=== PATIENT | female | born 1980 | race Caucasian/White ===

== ENCOUNTER → 2020-07-28 | Outpatient (REF) | payer OTHER ==
[~2020-07-28] MED LIST: IBUP200C25 PO; PERCOCET PO; SIME80TA PO
== END ==
LOC: M LAB REF 16:27
PROVIDERS: ATTEND Registered Nurse
DX: R10.84 Generalized abdominal pain (principal)

== ENCOUNTER → 2021-04-28 | Outpatient (REF) | payer OTHER ==
[~2021-04-28] MED LIST changes: +SIME80CH5 PO; -SIME80TA PO
[2021-04-28 18:56] LABS: AMYLASE 67 U/L (25-115); LIPASE 132 U/L (73-393)
[2021-05-01 12:10] LABS: ANTINUCLEAR ANTIBODIES DIRECT Negative (Negative)
== END ==
LOC: M LAB REF 16:26
PROVIDERS: ATTEND Physician Assistant Medical
DX: R10.12 Left upper quadrant pain (principal); M79.10 Myalgia, unspecified site

== ENCOUNTER → 2021-05-04 | Outpatient (CLI) | payer OTHER ==
[~2021-05-04] MED LIST changes: +GASTROGRAFIN SOLUTION 30ML (Q9963) As Ordered ONE; +ISOVUE-370 76% 100ML VIAL As Ordered ONE
--- NOTE | 2021-05-04 15:49 | REP ---
INDICATION: ABD PAIN AND BLOATING (2 HOUR PREP NEEDED). COMPARISON: None. TECHNIQUE: Standard helical technique before and after the administration of intravenous contrast. Oral bowel preparatory contrast was administered prior to the exam. 100 cc of Isovue 370 was administered intravenously. FINDINGS: The lung bases are clear. The pre contrast enhanced portion examination shows hepatic and splenic densities to be within normal limits. There are no nephroliths or choleiths. The postcontrast enhanced portion examination shows a tiny cyst in the medial segment of the left lobe of the liver. There are no enhancing hepatic abnormalities. The spleen, pancreas, adrenal glands, and kidneys are within normal limits. The abdominal aorta and para-aortic regions are within normal limits. The bowel loops and the mesenteries are within normal limits. There is no free fluid or free air. There is no evidence of a mass or adenopathy. Bone window technique throughout the examination shows discogenic changes at L5-S1. IMPRESSION: There is no evidence of acute disease. Findings as described above. <Electronically signed by Maged Nance > 05/04/21 [id number]
== END ==
LOC: M RAD 13:43
PROVIDERS: ATTEND Physician Assistant Medical
DX: R10.84 Generalized abdominal pain (principal)
CPT/HCPCS: 74178; Q9963; Q9967

== ENCOUNTER → 2021-07-03 | Outpatient (CLI) | payer OTHER ==
[~2021-07-03] MED LIST changes: -GASTROGRAFIN SOLUTION 30ML (Q9963) As Ordered ONE; -ISOVUE-370 76% 100ML VIAL As Ordered ONE
[2021-07-03 16:00] LABS: ALBUMIN 3.5 GM/DL (3.2-5.2); ALT/SGPT 26 U/L (12-78); BILIRUBIN,DIRECT < 0.1 MG/DL (0.0-0.2); BILIRUBIN,TOTAL 0.3 MG/DL (0.2-1.0); TOTAL PROTEIN 6.7 GM/DL (6.4-8.2)
[2021-07-06 06:08] LABS: IGASUB2 86.5 mg/dL (73.2-301.2); IGASUB3 16.1 mg/dL (13.4-97.9); IgA SERUM (part of Subclasses) 102 mg/dL (87-352); TISSUE TRANSGLUTAMINASE IgA <2 U/mL (0-3)
== END ==
LOC: M LAB 14:00
PROVIDERS: ATTEND Internal Medicine Gastroenterology
DX: R10.13 Epigastric pain (principal)

== ENCOUNTER → 2021-08-16 | Outpatient (CLI) | payer OTHER ==
[~2021-08-16] MED LIST changes: +LORA-674
== END ==
LOC: M LABSMTC 10:30
PROVIDERS: ATTEND Anesthesiology
DX: Z01.812 Encounter for preprocedural laboratory examination (principal); Z20.822 Contact with and (suspected) exposure to COVID-19

== ENCOUNTER 2021-08-21 13:58 | Day surgery (SDC) | payer OTHER ==
[~2021-08-21] VITALS: Ht 167.6 cm; Wt 64.4 kg
[~2021-08-21 13:58] MED LIST changes: +LIDOCAINE 1% MDV 20ML VIAL SQ PRN; +LR 1,000 ML IV ONE; +NS 1,000 ML IV ONE
[2021-08-21] MEDS ORDERED: LIDOCAINE 2% 100MG/5ML SDV (FOR ANES.) As Ordered ONE (15:05)
[2021-08-21] MEDS ORDERED: fentaNYL 100 MCG/2 ML INJECTION (J3010) As Ordered ONE (15:05)
[2021-08-21] MEDS ORDERED: propofoL 200 MG/20 ML VIAL As Ordered ONE ×2 (15:05→15:14)
[2021-08-21] MEDS ORDERED: GLYCOPYRROLATE INJ 0.2 MG/ML 2 ML VIAL As Ordered ONE (15:32)
--- NOTE | 2021-08-21 15:57 | ROOR ---
Patient Name: Juanita Arguelles Procedure Date: 08/21/2021 3:11 PM Date of : 1980 Age: 41 Room: [facility] Gender: Female Note Status: Finalized Procedure: Colonoscopy Indications: Hematochezia Providers: Jose Oliva MD Referring MD: Cliff Cazares MD Requesting Provider: Medicines: Monitored Anesthesia Care Complications: No immediate complications. Procedure: Pre-Anesthesia Assessment: - Prior to the procedure, a History and Physical was performed, and patient medications and allergies were reviewed. The patient is competent. The risks and benefits of the procedure and the sedation options and risks were discussed with the patient. All questions were answered and informed consent was obtained. Patient identification and proposed procedure were verified by the physician, the nurse and the anesthesiologist in the procedure room. Mental Status Examination: alert and oriented. Airway Examination: normal oropharyngeal airway and neck mobility. Respiratory Examination: clear to auscultation. CV Examination: normal. Prophylactic Antibiotics: The patient does not require prophylactic antibiotics. Prior Anticoagulants: The patient has taken no previous anticoagulant or antiplatelet agents. ASA Grade Assessment: II - A patient with mild systemic disease. After reviewing the risks and benefits, the patient was deemed in satisfactory condition to undergo the procedure. The anesthesia plan was to use monitored anesthesia care (MAC). Immediately prior to administration of medications, the patient was re-assessed for adequacy to receive sedatives. The heart rate, respiratory rate, oxygen saturations, blood pressure, adequacy of pulmonary ventilation, and response to care were monitored throughout the procedure. The physical status of the patient was re-assessed after the procedure. The Colonoscope was introduced through the anus and advanced to the terminal ileum, with identification of the appendiceal orifice and IC valve. The colonoscopy was performed without difficulty. The patient tolerated the procedure well. The quality of the bowel preparation was good. The terminal ileum, ileocecal valve, appendiceal orifice, and rectum were photographed. Scope insertion time was 4 minutes. Scope withdrawal time was 10 minutes. The total duration of the procedure was 16 minutes. Findings: The perianal and digital rectal examinations were normal. The terminal ileum appeared normal. Two sessile polyps were found in the ascending colon. The polyps were 6 to 10 mm in size. These polyps were removed with a hot snare. Resection and retrieval were complete. These polyps were removed with a cold snare. Resection and retrieval were complete. To close a defect after polypectomy, one hemostatic clip was successfully placed. There was no bleeding at the end of the procedure. Verification of patient identification for the specimen was done by the physician and nurse using the patient's name, date and medical record number. Estimated blood loss was minimal. Non-bleeding external and internal hemorrhoids were found during retroflexion. The hemorrhoids were medium-sized. There is no endoscopic evidence of mass or polyps in the recto-sigmoid colon. The colon (entire examined portion) was significantly tortuous. Impression: - The examined portion of the ileum was normal. - Two 6 to 10 mm polyps in the ascending colon, removed with a hot snare and removed with a cold snare. Resected and retrieved. Clip was placed. - Non-bleeding external and internal hemorrhoids. - Tortuous colon. Recommendation: - Patient has a contact number available for emergencies. The signs and symptoms of potential delayed complications were discussed with the patient. Return to normal activities tomorrow. Written discharge instructions were provided to the patient. - High fiber diet. - Continue present medications. - Await pathology results. - Repeat colonoscopy in 3 - 5 years for surveillance based on pathology results. - Telephone GI clinic for pathology results in 2 weeks. - Return to GI clinic if persistent symptoms or new symptoms. - Return to primary care physician. Procedure Code(s): --- Professional --- 53863, Colonoscopy, flexible; with removal of tumor(s), polyp(s), or other lesion(s) by snare technique Diagnosis Code(s): --- Professional --- K64.8, Other hemorrhoids K63.5, Polyp of colon K92.1, Melena (includes Hematochezia) Q43.8, Other specified congenital malformations of intestine CPT copyright 2019 [employer]. All rights reserved. The codes documented in this report are preliminary and upon car head liner installer review may be revised to meet current compliance requirements. Jose Oliva MD Jose Oliva MD 08/21/2021 3:56:49 PM Electronically signed by Jose Oliva MD Number of Addenda: 0 Note Initiated On: 08/21/2021 3:11 PM Estimated Blood Loss: Estimated blood loss was minimal.
[2021-08-21 16:10] VITALS: BP 126/98
--- OUTSIDE RECORDS SUMMARY | 2021-08-24 09:21 | CCD | Continuity of Care Document ---
Author Author Juanita SINGH M.D. Organization Unknown Address [address], [address] [place] [address] Phone [phone] Care Team Providers Care Squirrel Man Name Role Phone Cliff Cazares M.D. AUTM [phone] Jamin Mendoza AUTM [phone] Problems Description No Information Available Social History Type Date Description Comments Sex Unknown ETOH Use Rarely Recreational Drug Use Denies Drug Use Tobacco Use Start: Unknown Denies Smoking Allergies, Adverse Reactions, Alerts Active Allergies Criticality Reaction | Severity Comments Date Amoxicillin Unable to assess criticality Hives 06/12/2021 Azithromycin Unable to assess criticality Hives 06/12/2021 Clindamycin Unable to assess criticality Hives 06/12/2021 Penicillin V Unable to assess criticality Hives 06/12/2021 Sulfa Unable to assess criticality Hives 06/12/2021 Medications Active Medications SIG Qnty Indications Ordering Provide r Date Omeprazole 40mg Capsules DR once daily - take program instructor on empty stomach - atleast 1/2 hour before breakfast. (taper off after 6 weeks) 30caps R10.13 Jose Oliva M.D. History Medications No Active Medications Unknown 12/2020 - 07/03/2021 Immunizations Description No Information Available Vital Signs Date Vital Result Comment 07/03/2021 10:12am BP Systolic 132 mmHg BP Diastolic 78 mmHg Height 66 inches 5'6" Weight 140.00 lb BMI (Body Mass Index) 22.6 kg/m2 [place] Body Weight 130 lb Weight 63.504 kg BSA (Body Surface Area) 1.72 m2 06/12/2021 2:51pm BP Systolic 110 mmHg BP Diastolic 60 mmHg Body Temperature 99.1 F Height 66 inches 5'6" Weight 150.00 lb BMI (Body Mass Index) 24.2 kg/m2 [place] Body Weight 130 lb Weight 68.040 kg BSA (Body Surface Area) 1.77 m2 Results Description No Information Available Procedures Date Code Description Status 06/12/2021 80725 Office/Outpatient New Moderate M DM 45-59 Minutes Completed Medical Devices Description No Information Available Encounters Type Date Location Provider Dx Diagnosis Office Visit 06/12/2021 2:45p [facility] Jamin wright M.D. K62.3 Rectal prolapse Assessments Date Code Description Provider 07/03/2021 R10.13 Epigastric pain Jose Gomez ala, M.D. 07/03/2021 K62.3 Rectal prolapse Jose Gomez ala, M.D. 06/12/2021 K62.3 Rectal prolapse Jamin Singh M.D. Plan of Treatment 07/03/2021 - Jose Oliva M.D.* R10.13 Epigastric pain * K62.3 Rectal prolapse * * New Medication:* Omeprazole 40 mg * New Labs:* H Pylori Stool Antigen, Ordered: 07/03/21 * Tissue Transglutaminase Iga, Ordered: 07/03/21 * Iga Subclasses, Ordered: 07/03/21 * Liver Profile, Ordered: 07/03/21 * Comments:* Impression:-- Episode of upper abdominal pain and right upper quadrant pain which lasted for 3-4 weeks and gradually improved with lot of OTC medications ( patient does ont recall exact details but reports taking OTC acid reducing medicaitons) -- DDx-- PUD vs H. pylori vs Celiac vs biliary.-- * Recommendations:* -Take PPI daily for 6 weeks course-- Take program instructor on empty stomach, atleast half an hour before breakfast. Functional Status Description No Information Available Mental Status Description No Information Available Referrals Refer to Reason for Referral Status Appt Date Beto Varela M.D INTERMITTENT RECTAL PROLAPSE Created [address] [place] [id number] [phone] Jamin Singh M.D. RECTAL PROLAPSE Scheduled [facility] [address] [place], [place] [id number] [phone] Erick Flower M.D. RECTAL PROLASPE / GERD Closed [facility], Gastroenterology [address], [address] [place], [place] [id number] [phone]
--- OUTSIDE RECORDS SUMMARY | 2021-08-24 09:21 | CCD | Continuity of Care Document ---
Author Author Juanita SINGH M.D. Organization Unknown Address [address], [address] [place] [address] Phone [phone] Care Team Providers Care Eye Clinic Manager Name Role Phone Cliff Cazares M.D. AUTM [phone] Jamin Mendoza AUTM [phone] Problems Description No Information Available Social History Type Date Description Comments Sex Unknown ETOH Use 1 A Month Recreational Drug Use Denies Drug Use Tobacco Use Start: Unknown Denies Smoking Allergies, Adverse Reactions, Alerts Active Allergies Reaction Severity Comments Date Amoxicillin Hives 06/12/2021 Azithromycin Hives 06/12/2021 Clindamycin Hives 06/12/2021 Penicillin V Hives 06/12/2021 Sulfa Hives 06/12/2021 Medications Description No Active Medications Immunizations Description No Information Available Vital Signs Date Vital Result Comment 06/12/2021 2:51pm BP Systolic 110 mmHg BP Diastolic 60 mmHg Body Temperature 99.1 F Height 66 inches 5'6" Weight 150.00 lb BMI (Body Mass Index) 24.2 kg/m2 [place] Body Weight 130 lb Weight 68.040 kg BSA (Body Surface Area) 1.77 m2 Results Description No Information Available Procedures Description No Information Available Medical Devices Description No Information Available Encounters Description No Information Available Assessments Description No Information Available Plan of Treatment Future Appointment(s):* 07/03/2021 9:20 am - Jose Oliva M.D. at [facility] G[facility]enterology [facility] Functional Status Description No Information Available Mental Status Description No Information Available Referrals Refer to Dr Reason for Referral Status Appt Date Jamin Singh M.D. RECTAL PROLAPSE Scheduled [address] [facility] [address] [place], [place] [address] [phone] Erick Flower M.D. RECTAL PROLASPE / GERD Closed [facility], Gastroenterology [address], [address] [place] [address] [phone]
--- OUTSIDE RECORDS SUMMARY | 2021-08-24 09:21 | CCD | Continuity of Care Document ---
Author Author Juanita BUSTAMANTE M.D. Organization Unknown Address [address], [address] [place] [address] Phone [phone] Care Team Providers Care Emergency Medcl Emt Name Role Phone Cliff Cazares M.D. 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 (taper off after 6 weeks) 30caps R10.13 Jose Bustamante M.D. History Medications No Active Medications Unknown 12/2020 - 07/03/2021 Immunizations Description No Information Available Vital Signs Date Vital Result Comment 07/03/2021 10:12am BP Systolic 132 mmHg BP Diastolic 78 mmHg Height 66 inches 5'6" Weight 140.00 lb BMI (Body Mass Index) 22.6 kg/m2 [place] Body Weight 130 lb Weight 63.504 kg BSA (Body Surface Area) 1.72 m2 06/12/2021 2:51pm BP Systolic 110 mmHg BP Diastolic 60 mmHg Body Temperature 99.1 F Height 66 inches 5'6" Weight 150.00 lb BMI (Body Mass Index) 24.2 kg/m2 [place] Body Weight 130 lb Weight 68.040 kg BSA (Body Surface Area) 1.77 m2 Results Test Acquired Date Facility Test Result H/L Range Note Laboratory test finding 07/03/2021 [facility] [address] [place] [address] [phone] Tissue Transglutaminase IgA <2 U/mL Normal 0-3 1 Iga Subclasses 07/03/2021 [facility] [address] [place] [address] [phone] IgA Serum (part of Subclasses) 102 mg/dL Normal 8 7-352 Igasub2 86.5 mg/dL Normal 73.2-301.2 Igasub3 16.1 mg/dL Normal 13.4-97.9 Liver Profile 07/03/2021 [facility] [address] [place] [address] [phone] Ast/Sgot 22 U/L Normal 7-37 Alt/SGPT 26 U/L Normal 12-78 Alkaline Phosphatase 35 U/L Low 45-117 Bilirubin,Total 0.3 mg/dL Normal 0.2-1.0 Bilirubin,Direct < 0.1 mg/dL Normal 0.0-0.2 Total Protein 6.7 GM/DL Normal 6.4-8.2 Albumin 3.5 GM/DL Normal 3.2-5.2 Albumin/Globulin Ratio 1.1 Low 1.2-2.2 1 Negative 0 - 3 Weak Positive 4 - 10 Positive >10 . Tissue Transglutaminase (tTG) has been identified as the endomysial antigen. Studies have demonstr- ated that endomysial IgA antibodies have over 99% specificity for gluten sensitive enteropathy. Performed at: - [facility] [id number] [place]: Corrine Pimentel MD, Phone: [phone] Performed at: - [facility] [id number] [place]: Adrienne Driscoll MD, Phone: [phone] Procedures Date Code Description Status 07/03/2021 80864 Office/Outpatient New Moderate M DM 45-59 Minutes Completed 06/12/2021 14359 Office/Outpatient New Moderate M DM 45-59 Minutes Completed Medical Devices Description No Information Available Encounters Type Date Location Provider Dx Diagnosis Office Visit 07/03/2021 9:20a [facility] Gastroenterology [facility] ctice Jose Bustamante M.D. R10.13 Epigastric pain K62.3 Rectal prolapse Office Visit 06/12/2021 2:45p [facility] Jamin wright M.D. K62.3 Rectal prolapse Assessments Date Code Description Provider 07/03/2021 R10.13 Epigastric pain Jose Gomez ala, M.D. 07/03/2021 K62.3 Rectal prolapse Jose Gomez ala, M.D. 06/12/2021 K62.3 Rectal prolapse Jamin Osorio M.D. Plan of Treatment No Information Available Functional Status Description No Information Available Mental Status Description No Information Available Referrals Refer to Dr Reason for Referral Status Appt Date Beto Varela M.D INTERMITTENT RECTAL PROLAPSE Closed [address] [facility] [address] [address] [phone] Jamin Osorio M.D. RECTAL PROLAPSE Scheduled 1 [facility] [address] [place], [place] [address] [phone] Erick Flower M.D. RECTAL PROLASPE / GERD Closed [facility], Gastroenterology [address], [address] [place] [address] [phone]
--- OUTSIDE RECORDS SUMMARY | 2021-08-24 09:21 | CCD | Continuity of Care Document ---
Author Organization Unknown Address Unknown Phone Unavailable Care Team Providers Care Bridal Consultant Name Role Phone Cliff Cazares MD [facility] [phone] Problems Description No Information Available Social History Type Date Description Comments Sex Unknown ETOH Use Denies alcohol use Tobacco Use Start: Unknown Patient has never smoked Allergies, Adverse Reactions, Alerts Active Allergies Criticality Reaction | Severity Comments Date Sulfa Antibiotics Unable to assess criticality 10/25/2016 Penicillins Unable to assess criticality 10/25/2016 Clindamycin Unable to assess criticality 10/25/2016 Amoxicillin Unable to assess criticality Az 10/25/2016 Azithromycin Unable to assess criticality 10/25/2016 Medications Active Medications SIG Qnty Indications Ordering Provide r Date Loratadine 10mg Tablets 1 by mouth every day 30tabs Cliff Cazares M.D. 01/17/2021 History Medications Zyrtec Allergy 10mg Tablets 1 by mouth every night 30tabs Cliff Cazares M.D. 01/12/2021 - 01/17/2021 Immunizations Description No Information Available Vital Signs Date Vital Result Comment 05/19/2021 3:02pm BP Systolic 126 mmHg BP Diastolic 76 mmHg Heart Rate 68 /min Height 65 inches 5'5" Weight 147.00 lb BMI (Body Mass Index) 24.5 kg/m2 04/28/2021 2:37pm BP Systolic 120 mmHg BP Diastolic 80 mmHg Heart Rate 54 /min Height 65 inches 5'5" Weight 145.00 lb O2 % BldC Oximetry 100 % RM Air BMI (Body Mass Index) 24.1 kg/m2 Results Test Acquired Date Facility Test Result H/L Range Note Liver Profile 07/03/2021 [facility] nter [address], [place] [id number] [phone] Ast/Sgot 22 U/L Normal 7-37 Alt/SGPT 26 U/L Normal 12-78 Alkaline Phosphatase 35 U/L Low 45-117 Bilirubin,Total 0.3 mg/dL Normal 0.2-1.0 Bilirubin,Direct < 0.1 mg/dL Normal 0.0-0.2 Total Protein 6.7 GM/DL Normal 6.4-8.2 Albumin 3.5 GM/DL Normal 3.2-5.2 Albumin/Globulin Ratio 1.1 Low 1.2-2.2 Laboratory test finding 07/03/[address] [address] [phone] Tissue Transglutaminase IgA <2 U/mL Normal 0-3 1 Iga Subclasses 07/03/2021 [facility] nter [address] [place] [address] [phone] IgA Serum (part of Subclasses) 102 mg/dL Normal 8 7-352 Igasub2 86.5 mg/dL Normal 73.2-301.2 Igasub3 16.1 mg/dL Normal 13.4-97.9 Laboratory test finding 04/28/[address] [address] [phone] Erythrocyte Sedimentation Rate 8 mm/hr Normal 0 -20 Amylase 67 U/L Normal 25-115 Lipase 132 U/L Normal 73-393 Antinuclear Antibodies 04/28/[address] [address] [phone] Antinuclear Antibodies Direct Negative Normal Ne gative 2 Complete Blood Count 04/28/2021 [facility] Store Assistant: [place] [address] [phone] WBC 5.5 x10*3/UL 4.1 - 10.9 RBC 3.82 x10*6/UL Low 4.20 - 6.30 Hemoglobin 13.0 g/dL 12.0 - 18.0 Hematocrit 37.6 % 37.0 - 51.0 MCV 98.4 fL High 80.0 - 97.0 MCH 34.1 pg High 26.0 - 32.0 MCHC 34.7 g/dL 31.0 - 38.0 RDW 13.4 % 11.6 - 13.7 PLT 205 x10*3/UL 140 - 440 MPV 8.3 FL 7.8 - 11.0 Lymph % 21.0 % 10.0 - 58.5 Mid % 6.3 % 1.7 - 9.3 Neut % 72.7 % 37.0 - 92.0 Lymph # 1.1 x10*3/UL 0.6 - 4.1 Mid # 0.4 x10*3/UL 0.1 - 0.6 Neut # 4.0 x10*3/UL 2.0 - 7.8 Comprehensive Chem Profile 04/28/2021 [facility], Store Assistant: [place] [address] [phone] Glucose 94 mg/dL 74 - 99 3 BUN 28 mg/dL High 7 - 18 Creatinine 1.1 mg/dL 0.6 - 1.3 Sodium 135 mEq/L Low 136 - 145 Potassium 4.0 mEq/L 3.5 - 5.1 Chloride 100 mEq/L 98 - 107 Carbon Dioxide 31 mEq/L 21 - 32 Calcium 8.8 mg/dL 8.5 - 10.1 Alk. Phosphatase 36 mg/dL Low 46 - 116 Total Bilirubin 0.5 mg/dL 0.2 - 1.0 Ast (Sgot) 21 U/L 15 - 37 Alt (SGPT) 27 U/L 12 - 78 Albumin 3.9 g/dL 3.4 - 5.0 Total Protein 7.2 g/dL 6.4 - 8.2 A/G Ratio 1.18 CALC 1.00 - 1.90 GFR 55 mL/min Low >60 GFR >= 60 mL/min >60 4 Ua Dipstick Only 04/28/2021 [facility] , Store Assistant: [place] [address] [phone] Urine Color STRAW Abnormal Yellow Urine Appearance CLEAR Clear Urine PH 8.0 units 5.0 - 9.0 Urine Specific [place] 1.005 1.005 - 1.030 Urine Leukocytes NEGATIVE Negative Urine Blood NEGATIVE Negative Urine Protein NEGATIVE Negative -Trace Urine Glucose NEGATIVE mg/dL Negative Urine Nitrite NEGATIVE Negative Urine Ketone NEGATIVE mg/dL Negative Urine Bilirubin NEGATIVE Negative Urine Urobilinogen 0.2 mg/dL 0.2 - 1.0 1 Negative 0 - 3 Weak Positive 4 - 10 Positive >10 . Tissue Transglutaminase (tTG) has been identified as the endomysial antigen. Studies have demonstr- ated that endomysial IgA antibodies have over 99% specificity for gluten sensitive enteropathy. Performed at: [facility] [address] [id number] Store Assistant: Corrine Pimentel MD, Phone: [phone] Performed at: [facility] Lab[address] [id number] Store Assistant: Adrienne Driscoll MD, Phone: [phone] Performed at: [address] [id number] Store Assistant: Corrine Pimentel MD, Phone: [phone] 100-125 mg/dL PRE-DIABET ES/FASTING >126 mg/dL DIABETES/FASTING 4 CHRONIC KIDNEY DISEASE STAGI NG PER NKF STAGE I & II GFR >= 60 NORMAL TO MILDLY DECREASED STAGE III GFR 30-59 MODERATELY DECREASED STAGE IV GFR 15-29 SEVERELY DECREASED STAGE V GFR <15 VERY LITTLE GFR LEFT ESRD GFR <15 ON MACHINE MAINTENANCE Procedures Date Code Description Status 05/19/2021 58064 Office/Outpatient Established Lo w MDM 20-29 Min Completed 04/28/2021 33678 Office/Outpatient Established Mo d MDM 30-39 Min Completed 01/12/2021 07050 Est Prevent Med (18-39Yrs) Compl eted 2015 [id number] Mammogram Completed Medical Devices Description No Information Available Encounters Type Date Location Provider Dx Diagnosis Office Visit 05/19/2021 3:00p [facility] PELADIA Cristobal JR K62.3 Rectal prolapse Office Visit 04/28/2021 2:40p Lucía Woo JR, PA R10.84 Generalized abdominal pain K59.00 Constipation, unspecified K64.9 Unspecified hemorrhoids R21 Rash and other nonspecific s kin eruption Office Visit 01/12/2021 10:30a [facility] PSirisha Cazares M.D. Z00.00 Encntr for general adult medical exam w/ o abnormal findings E78.5 Hyperlipidemia, unspecified I83.93 Asymptomatic varicose veins of bilateral lower extremities R23.8 Other skin changes Z85.3 Personal history of malignan t neoplasm of breast Z. Encounter for screening for other disorder Assessments Date Code Description Provider 05/19/2021 K62.3 Rectal prolapse ELADIA Sauceda JR 04/28/2021 R10.84 Generalized abdominal pain Carlos ELADIA Gates JR 04/28/2021 K59.00 Constipation, unspecified ELADIA Zhang JR 04/28/2021 K64.9 Unspecified hemorrhoids ELADIA Zhang JR 04/28/2021 R21 Rash and other nonspecific skin eruption ELADIA Zhang JR 01/12/2021 Z00.00 Encounter for general adult medi david examination without abno Cliff Cazares M.D. 01/12/2021 E78.5 Hyperlipidemia, unspecified Jaja Cazares M.D. 01/12/2021 I83.93 Asymptomatic varicose veins of b ilateral lower extremities Cliff Cazares M.D. 01/12/2021 R23.8 Other skin changes Cliff yarbrough M.D. 01/12/2021 Z85.3 Personal history of malignant ne oplasm of breast Cliff Cazares M.D. 01/12/2021 Z13.89 Encounter for screening for othe r disorder Cliff Cazares M.D. Plan of Treatment Future Appointment(s):* 01/15/2022 7:50 am - Lab Schedule at [facility] * 01/16/2022 9:00 am - Cliff Cazares M.D. at [facility] 01/12/2021 - Cliff Cazares M.D.* Z00.00 Encntr for general adult medical exam w/o abnormal findings * E78.5 Hyperlipidemia, unspecified * I83.93 Asymptomatic varicose veins of bilateral lower extremities * R23.8 Other skin changes * Z85.3 Personal history of malignant neoplasm of breast * Z Encounter for screening for other disorder * * Comments:* 1. Annual wellness visit: Well education was done today. 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 She does not require mammogram per Oncology. She has never had abnormal Pap smear. She will continue to follow positive lifestyle changes.2. Hyperlipidemia: Has done well in the past with diet alone. She is working on losing weight. Encouraged to limit salt in her diet. She will continue with regular exercises along with positive lifestyle changes. We will monitor.3. Personal history of malignant neoplasm of breast: She follows with the [facility] in [place] annually. At present, there is no imaging needed since there is no breast tissue per Oncology. She will continue to follow up appropriately. We will monitor.4. Asymptomatic varicose veins of bilateral lower extremities: Doing well. She will follow up with Dr. Bess appropriately. We will monitor.5. Other skin changes: She will use topical hydrocortisone cream to avoid itching. She will check her environment for possible agent and will follow up.Ongoing cares: I will see her again in 1 year with labs (CMP, lipids, TSH and CBC) but she will follow up with contact in 2 weeks regarding the rash. Functional Status Description No Information Available Mental Status Description No Information Available Referrals Refer to Reason for Referral Status Appt Date Jamin Osorio MD OLVIN CONSULT FOR RECTAL PROL APSE PT TO BE SEEN BY A SURGEON PER PROVIDER REQUEST. PT NOT SEEING GI FOR THIS PROBLEM Patient Notified 05/31/2021 [facility] [address], [address] [place], [place] [address] [phone] Jose Oliva MD CONSULT FOR INTERMITTENT REC TEN PROLAPSE AND GERD PT IS SCHEDULED FOR CT ABD/PELVIS AT [facility] ON 05/04/21 Patient Notified [address] [facility] [address] [place] [address] [phone]
--- OUTSIDE RECORDS SUMMARY | 2021-08-24 09:21 | CCD | Continuity of Care Document ---
Author Author Juanita BUSTAMANTE M.D. Organization Unknown Address [address], [address] [place] [address] Phone [phone] Care Team Providers Care Solid State Tester Name Role Phone Cliff Cazares M.D. 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 (taper off after 6 weeks) 30caps R10.13 Jose Bustamante M.D. History Medications No Active Medications Unknown 12/2020 - 07/03/2021 Immunizations Description No Information Available Vital Signs Date Vital Result Comment 07/03/2021 10:12am Height 66 inches 5'6" Weight 140.00 lb BMI (Body Mass Index) 22.6 kg/m2 [place] Body Weight 130 lb Weight 63.504 kg 06/12/2021 2:51pm BP Systolic 110 mmHg BP Diastolic 60 mmHg Body Temperature 99.1 F Height 66 inches 5'6" Weight 150.00 lb BMI (Body Mass Index) 24.2 kg/m2 [place] Body Weight 130 lb Weight 68.040 kg BSA (Body Surface Area) 1.77 m2 Results Description No Information Available Procedures Description No Information Available Medical Devices Description No Information Available Encounters Description No Information Available Assessments Date Code Description Provider 07/03/2021 R10.13 Epigastric pain Jose Gomez ala, M.D. 07/03/2021 K62.3 Rectal prolapse Jose Gomez ala, M.D. 06/12/2021 K62.3 Rectal prolapse Jamin Osorio M.D. Plan of Treatment No Information Available Functional Status Description No Information Available Mental Status Description No Information Available Referrals Refer to Reason for Referral Status Appt Date Beto Varela M.D INTERMITTENT RECTAL PROLAPSE Created [address] [place] [address] [address] [place] [address] [phone] Jamin Osorio M.D. RECTAL PROLAPSE Scheduled 1 [facility] [address] [place], [place] [address] [phone] Erick Flower M.D. RECTAL PROLASPE / GERD Closed [facility], Gastroenterology [address], [address] [place] [address] [phone]
--- OUTSIDE RECORDS SUMMARY | 2021-08-24 09:21 | CCD | Continuity of Care Document ---
Author Author Juanita BUSTAMANTE M.D. Organization Unknown Address [address] [facility], [address] [place] [address] Phone [phone] Care Team Providers Care Assistant Teacher Name Role Phone Cliff Cazares M.D. 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 (taper off after 6 weeks) 30caps R10.13 Jose Bustamante M.D. History Medications No Active Medications Unknown 12/2020 - 07/03/2021 Immunizations Description No Information Available Vital Signs Date Vital Result Comment 07/03/2021 10:12am BP Systolic 132 mmHg BP Diastolic 78 mmHg Height 66 inches 5'6" Weight 140.00 lb BMI (Body Mass Index) 22.6 kg/m2 [place] Body Weight 130 lb Weight 63.504 kg BSA (Body Surface Area) 1.72 m2 06/12/2021 2:51pm BP Systolic 110 mmHg BP Diastolic 60 mmHg Body Temperature 99.1 F Height 66 inches 5'6" Weight 150.00 lb BMI (Body Mass Index) 24.2 kg/m2 [place] Body Weight 130 lb Weight 68.040 kg BSA (Body Surface Area) 1.77 m2 Results Test Acquired Date Facility Test Result H/L Range Note Laboratory test finding 07/03/2021 [facility] [address] [place] [address] [phone] Tissue Transglutaminase IgA <2 U/mL Normal 0-3 1 Iga Subclasses 07/03/2021 [facility] [address] [place] [address] [phone] IgA Serum (part of Subclasses) 102 mg/dL Normal 8 7-352 Igasub2 86.5 mg/dL Normal 73.2-301.2 Igasub3 16.1 mg/dL Normal 13.4-97.9 Liver Profile 07/03/2021 [facility] 0 [place] [address] [phone] Ast/Sgot 22 U/L Normal 7-37 Alt/SGPT 26 [...] for gluten sensitive enteropathy. Performed at: - [facility] [id number] Student Assistant: Corrine Pimentel MD, Phone: [phone] Performed at: - [facility] [id number] Student Assistant: Adrienne Driscoll MD, Phone: [phone] Procedures Date Code Description Status 06/12/2021 [address] Office/Outpatient New Moderate M DM 45-59 Minutes Completed Medical Devices Description No Information Available Encounters Type Date Location Provider Dx Diagnosis Office Visit 06/12/2021 2:45p [facility] Jamin wright M.D. K62.3 [...] Varela M.D INTERMITTENT RECTAL PROLAPSE Closed [address] [place] [address] [phone] Jamin Osorio M.D. RECTAL PROLAPSE Scheduled 1 [facility] [address] [facility] [address] [place], [place] [address] [phone] Erick Flower M.D. RECTAL PROLASPE / GERD Closed [facility], Gastroenterology [address] [facility], [address] [place] [address] [phone]
--- OUTSIDE RECORDS SUMMARY | 2021-08-24 09:21 | CCD | Continuity of Care Document ---
Author Author Juanita SINGH M.D. Organization Unknown Address [address] [facility], [address] [place] [address] Phone [phone] Care Team Providers Care Carton Filling Machine Operator Name Role Phone Cliff Cazares M.D. AUTM [phone] Jamin Mendoza AUTM [phone] Problems Description No Information Available Social History [...] lb BMI (Body Mass Index) 24.2 kg/m2 [place] Body Weight 130 lb Weight 68.040 kg BSA (Body Surface Area) 1.77 m2 Results Description No Information Available Procedures Description No Information Available Medical Devices Description No Information Available Encounters Description No Information Available Assessments Description No Information Available Plan of Treatment Future Appointment(s):* 07/03/2021 9:20 am - Jose Oliva M.D. at [facility] Gastroenterology [facility] Functional Status Description No Information Available Mental Status Description No Information Available Referrals Refer to Dr Reason for Referral Status Appt Date Jamin Singh M.D. RECTAL PROLAPSE Scheduled [facility] [address] [place], [place] [address] [phone] Erick Flower M.D. RECTAL PROLASPE / GERD Closed [facility], Gastroenterology [address], [address] [place] [address] [phone]
--- OUTSIDE RECORDS SUMMARY | 2021-08-24 09:21 | CCD | Continuity of Care Document ---
Author Author Juanita SINGH M.D. Organization Unknown Address [address] [facility], [address] [place] [address] Phone [phone] Care Team Providers Care Precision Farming Specialist Name Role Phone Cliff Cazares M.D. AUTM [phone] Jamin Mendoza AUTM [phone] Problems Description No Information Available Social History [...] lb BMI (Body Mass Index) 24.2 kg/m2 [place] Body Weight 130 lb Weight 68.040 kg BSA (Body Surface Area) 1.77 m2 Results Description No Information Available Procedures Description No Information Available Medical Devices Description No Information Available Encounters Description No Information Available Assessments Description No Information Available Plan of Treatment Future Appointment(s):* 07/03/2021 9:20 am - Jose Oliva M.D. at [facility] Gastroenterology Practice Functional Status Description No Information Available Mental Status Description No Information Available Referrals Refer to Dr Reason for Referral Status Appt Date Jamin Singh M.D. RECTAL PROLAPSE Scheduled [facility] [address] [place], [place] [address] [phone] Erick Flower M.D. RECTAL PROLASPE / GERD Closed [facility], Gastroenterology [address] [facility], [address] [place] [address] [phone]
--- OUTSIDE RECORDS SUMMARY | 2021-08-24 09:21 | CCD | Summary of Care ---
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 Name Role Phone Cliff Cazares MD PCP Reason for Visit * Reason Comments New Patient Rectal prolapse * Consultation (Routine) Referred By Contact Referred To Contact Status Reason Specialty Diagnoses / Procedures Jamin Osorio MD [address] [id number] [place] [address] [place] [phone] Email: [email or web address] Open Colon and Rectal Diagnoses Surgery / Rectal prolapse Surgery Encounter Details Care Team Description [place] [address] [place] [phone] Rectal prolapse (Primary Dx) 07/27/2021 Office Visit [facility] B[facility], General [facility] Colorectal Surgery Clinic [address] [place] [phone] Allergies Comments Active Allergy Reactions Severity Noted Date Amoxicillin 07/20/2021 Azithromycin 07/20/2021 Clindamycin/Lincomycin 07/20/2021 Penicillins 07/20/2021 Sulfa Antibiotics 07/20/2021 documented as of this encounter (statuses as of 07/27/2021) Medications End Date Status Medication Sig Dispensed Refills Start Date Active Loratadine 10 MG Oral Take 10 mg by 0 01/19/20 2 Tablet (CLARITIN) mouth daily 1 documented as of this encounter (statuses as of 07/27/2021) Active Problems Problem Noted Date Rectal prolapse 07/27/2021 documented as of this encounter (statuses as of 07/27/2021) Social History Date Tobacco Use Types Packs/Day Years Used Never Smoker Smokeless Tobacco: Never Used Comments Alcohol Use Standard Drinks/Week ocassional Yes 0 (1 standard drink = 0.6 o z pure alcohol) Sex Assigned at Date Recorded Not on file Date Recorded COVID-19 Exposure Response 07/26/2021 2:42 PM EDT In the last month, have you been in contact with No / Unsure someone who was confirmed or suspected to have Coronavirus / COVID-19? documented as of this encounter Last Filed Vital Signs Reading Time Taken Comments Vital Sign 150/100 07/27/2021 9:26 AM EDT Blood Pressure 65 07/27/2021 9:26 AM EDT Pulse 36.5 C (97.7 F) 07/27/2021 9:26 AM EDT Temperature 16 07/27/2021 9:26 AM EDT Respiratory Rate 99% 07/27/2021 9:26 AM EDT Oxygen Saturation - - Inhaled Oxygen Concentration 66.7 kg (147 lb) 07/27/2021 9:26 AM EDT Weight 167.6 cm (5' 6") 07/27/2021 9:26 AM EDT Height 23.73 07/27/2021 9:26 AM EDT Body Mass Index documented in this encounter Progress Notes * Hamilton Gamez MD - 07/27/2021 9:45 AM EDT CLINIC H&P 07/27/2021 HPI: Juanita Arguelles is a 41 y.o. female referred by Dr. Osorio for rectal prolaps e. Per the referral, onset was around 05/14/21, occurring during an aerobics clas s. She had a subsequent event about [address] Osorio's note indicate s that she showed him a photo of the prolapsing tissue, which was shared with me . Per the picture, there appears to be full-thickness rectal prolapse with exte nt appearing to be least [address] performed, reported as negative. Colonoscop y none. Continence some seepage of mucus and stool during exercise, as well as flatus. Prior anal surgery none. Tends more toward looser stool. She does rep ort some longer standing mild stress urinary incontinence with jumping and has b een occurring since childbirth. PMH: Active Ambulatory Problems Diagnosis Date Noted No Active Ambulatory Problems Resolved Ambulatory Problems Diagnosis Date Noted No Resolved Ambulatory Problems Past Medical History: Diagnosis Date Breast cancer 2014 Vaginal prolapse PSH: Past Surgical History: Procedure Laterality Date HYSTERECTOMY 2015 MASTECTOMY 2015 Bilateral with Tram Flap Reconstruction FH: Family History Problem Relation Age of Onset Hypertension Mother Hypertension Father MEDICATIONS: Current Outpatient Medications: Loratadine 10 MG Oral Tablet (CLARITIN), Take 10 mg by mouth daily, Disp : , Rfl: ALLERGIES: Allergies Allergen Reactions Amoxicillin Azithromycin Clindamycin/Lincomycin Penicillins Sulfa Antibiotics SOCIAL HISTORY: Social History Socioeconomic History Marital status: Spouse name: Not on file Number of children: Not on file Years of education: Not on file Highest education level: Not on file Occupational History Not on file Tobacco Use Smoking status: Never Smoker Smokeless tobacco: Never Used Substance and Sexual Activity Alcohol use: Yes Comment: ocassional Drug use: Never Sexual activity: Not on file Other Topics Concern Not on file Social History Narrative Not on file Social Determinants of Health Financial Resource Strain: Difficulty of Paying Living Expenses: Food Insecurity: Worried About Running Out of Food in the Last Year: Ran Out of Food in the Last Year: Transportation Needs: Lack of Transportation (Medical): Lack of Transportation (Non-Medical): Physical Activity: Days of Exercise per Week: Minutes of Exercise per Session: Stress: Feeling of Stress : Social Connections: Frequency of Communication with Friends and Family: Frequency of Social Gatherings with Friends and Family: Attends Congregational Services: Active Member of Clubs or Organizations: Attends Club or Organization Meetings: Marital Status: Intimate Partner Violence: Fear of Current or Ex-Partner: Emotionally Abused: Physically Abused: Sexually Abused: REVIEW OF SYSTEMS: Review of Systems otherwise negative PHYSICAL EXAM: Vitals: 07/27/21 0926 BP: (!) 150/100 Pulse: 65 Resp: 16 Temp: 36.5 C (97.7 F) SpO2: 99% NEUROLOGICAL: alert, oriented, interacting appropriately HEENT: normocephalic, atraumatic CARDIAC: regular rate and rhythm, heart sounds without murmurs RESPIRATORY: normal work of breathing, breath sounds clear bilaterally ABDOMEN: soft, non-tender, non-distended, TRAM flap incisions noted. MUSCULOSKELETAL: moves all extremities, non-edematous Anorectal: Perianus reveals normal external hemorrhoids. There is mild thinning of the perineal body. I can see the scar from her prior obstetric care. Digit al rectal examination reveals moderate anal tone with reasonable squeeze bilater ally and posteriorly. Anteriorly there does appear to be intact squeeze, but po tentially some residual scar. Anoscopy is unremarkable. ASSESSMENT: Juanita Arguelles is a 41 y.o. female with what appears to be full-t hickness rectal prolapse based on photography, mild worsening of continence sinc e onset of the prolapse, and baseline loose to normal stools. She is still sexu ally active. PLAN: Based on the findings, I feel that she should undergo colonoscopy locally by the behavioral health assistant, Dr. Oliva, that she saw a few weeks ago. I feel that she is a good candidate for standard laparoscopic posterior rectopexy to be performed as an outpatient. I do not feel that she will require a full bowel p rep for the procedure.The patient was advised about the surgical risks, includin g bleeding, infection, injury to other organs, need for additional surgery, irre gular heartbeat, heart attack, pneumonia, DVT/PE, and . The patient consent s to surgery. We specifically discussed the risk for recurrent rectal prolapse, and her need for limiting significant physical activity for 6 weeks following t he operation. Hamilton Gamez MD General and Colorectal Surgery 07/27/2021 1:37 PM documented in this encounter Nursing Notes * AlexAdelia RN - 07/27/2021 9:45 AM EDT 07/27/2021: Juanita Arguelles Wt Readings from Last 3 Encounters: 07/27/21 66.7 kg (147 lb) Vitals: 07/27/21 0926 BP: (!) 150/100 BP Location: Right arm Patient Position: Sitting Cuff size: Regular Pulse: 65 Resp: 16 Temp: 36.5 C (97.7 F) TempSrc: Tympanic SpO2: 99% Weight: 66.7 kg (147 lb) Height: 1.676 m (5' 6") Feels something coming out with exercise. documented in this encounter Plan of Treatment Health Maintenance Due Date Last Done Comments MMR Vaccines (1 of - 1982 Standard series) Varicella Vaccines (1 of 1982 2 - 2-dose childhood series) DTaP,Tdap,and Td Vaccines 02/09/1988 (1 - Tdap) COVID-19 Vaccine (1) 1993 HIV Screening 1994 Cervical Cancer Screening 2002 5 years Influenza Vaccine 08/11/2021 Pneumococcal Vaccine: 65+ 2046 Years (1 of - PPSV23) HIB Vaccines Aged Out No longer eligible based on patient's age to complete this topic Hepatitis A Vaccines Aged Out No longer eligibl e based on patient's age to complete this topic Hepatitis B Vaccines Aged Out No longer eligibl e based on patient's age to complete this topic IPV Vaccines Aged Out No longer eligible based on patient's age to complete this topic Pneumococcal Vaccine: Aged Out No longer eligib le based on patient's age to Pediatrics (0 to 5 Years) complete this topic and At-Risk Patients (6 to 64 Years) documented as of this encounter Results Not on filedocumented in this encounter Visit Diagnoses Diagnosis Rectal prolapse - Primary documented in this encounter
--- OUTSIDE RECORDS SUMMARY | 2021-08-24 09:22 | CCD ---
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 Name Role Phone Trisha Cazares MD Unavailable Unavailable Trisha Cazares MD Unavailable Unavailable Trisha Cazares MD Unavailable Unavailable Trisha Cazares MD Unavailable Unavailable Trisha Cazares MD Unavailable Unavailable Trisha Cazares MD Unavailable Unavailable Trisha Cazares MD Unavailable Unavailable Trisha Cazares MD Unavailable Unavailable Trisha Cazares MD Unavailable Unavailable Trisha Cazares MD Unavailable Unavailable Trisha Cazares MD Unavailable Unavailable Trisha Cazares MD Unavailable Unavailable Trisha Cazares MD Unavailable Unavailable Trisha Cazares MD Unavailable Unavailable Trisha Cazares MD Unavailable Unavailable Trisha Cazares MD Unavailable Unavailable Trisha Cazares MD Unavailable Unavailable Trisha Cazares MD Unavailable Unavailable Trisha Cazares MD Unavailable Unavailable Trisha Cazares MD Unavailable Unavailable Trisha Cazares MD Unavailable Unavailable Trisha Cazares MD Unavailable Unavailable Trisha Cazares MD Unavailable Unavailable Trisha Cazares MD Unavailable Unavailable Trisha Cazares MD Unavailable Unavailable Trisha Cazares MD Unavailable Unavailable Trisha Cazares MD Unavailable Unavailable Trisha Cazares MD Unavailable Unavailable Trisha Cazares MD Unavailable Unavailable Trisha Cazares MD Unavailable Unavailable Trisha Cazares MD Unavailable Unavailable Trisha Cazares MD Unavailable Unavailable White, F Cliff Unavailable Unavailable White, F Cliff Unavailable Unavailable White, F Cliff MD Unavailable Unavailable White, F Cliff MD Unavailable Unavailable White, F Cliff Unavailable Unavailable White, F Cliff Unavailable Unavailable White, F Cliff Unavailable Unavailable White, F Cliff Unavailable Unavailable White, F Cliff MD Unavailable Unavailable White, F Cliff Unavailable Unavailable White, F Cliff Unavailable Unavailable White, F Cliff Unavailable Unavailable White, F Cliff Unavailable Unavailable White, F Cliff Unavailable Unavailable White, F Cliff Unavailable Unavailable White, F Cliff Unavailable Unavailable White, F Cliff MD Unavailable Unavailable White, F Cliff Unavailable Unavailable White, F Cliff MD Unavailable Unavailable White, F Cliff Unavailable Unavailable White, F Cliff Unavailable Unavailable White, F Cliff Unavailable Unavailable White, F Cliff Unavailable Unavailable White, F Cliff Unavailable Unavailable White, F Cliff Unavailable Unavailable White, F Cliff Unavailable Unavailable White, F Cliff Unavailable Unavailable White, F Cliff VILLALOBOS Unavailable Unavailable White, F Cliff Unavailable Unavailable White, F Cliff Unavailable Unavailable White, F Cliff Unavailable Unavailable White, F Cliff Unavailable Unavailable White, F Clifflakeshia VILLALOBOS Unavailable Unavailable White, F Cliff Unavailable Unavailable White, F Cliff VILLALOBOS Unavailable Unavailable White, F Cliff VILLALOBOS Unavailable Unavailable White, F Cliff VILLALOBOS Unavailable Unavailable White, F Cliff VILLALOBOS Unavailable Unavailable White, F Clifflakeshia VILLALOBOS Unavailable Unavailable White, F Cliff Unavailable Unavailable White, F Clifflakeshia VILLALOBOS Unavailable Unavailable White, F Cliff Unavailable Unavailable White F Cliff VILLALOBOS Unavailable Unavailable White F Cliff VILLALOBOS Unavailable Unavailable White, F Cliff VILLALOBOS Unavailable Unavailable Caridad, Halie NEWSPAPER COLUMNIST Unavailable Unavailable Caridad, Halie NEWSPAPER COLUMNIST Unavailable Unavailable Caridad, Halie NEWSPAPER COLUMNIST Unavailable Unavailable Caridad, Halie NEWSPAPER COLUMNIST Unavailable Unavailable Caridad, Halie NEWSPAPER COLUMNIST Unavailable Unavailable Caridad, Halie NEWSPAPER COLUMNIST Unavailable Unavailable Caridad, Halie NEWSPAPER COLUMNIST Unavailable Unavailable Caridad, Halie NEWSPAPER COLUMNIST Unavailable Unavailable Caridad, Halie NEWSPAPER COLUMNIST Unavailable Unavailable Caridad, Halie NEWSPAPER COLUMNIST Unavailable Unavailable Caridad, Halie NEWSPAPER COLUMNIST Unavailable Unavailable Caridad, Halie NEWSPAPER COLUMNIST Unavailable Unavailable Caridad, Halie NEWSPAPER COLUMNIST Unavailable Unavailable Caridad, Halie NEWSPAPER COLUMNIST Unavailable Unavailable Caridad, Halie NEWSPAPER COLUMNIST Unavailable Unavailable Caridad, Halie NEWSPAPER COLUMNIST Unavailable Unavailable Caridad, Halie NEWSPAPER COLUMNIST Unavailable Unavailable Caridad, Halie NEWSPAPER COLUMNIST Unavailable Unavailable Caridad, Halie NEWSPAPER COLUMNIST Unavailable Unavailable Caridad, Halie NEWSPAPER COLUMNIST Unavailable Unavailable Caridad, Halie NEWSPAPER COLUMNIST Unavailable Unavailable Caridad, Halie NEWSPAPER COLUMNIST Unavailable Unavailable Caridad, Halie NEWSPAPER COLUMNIST Unavailable Unavailable Caridad, Halie NEWSPAPER COLUMNIST Unavailable Unavailable Caridad, Halie NEWSPAPER COLUMNIST Unavailable Unavailable Caridad, Halie NEWSPAPER COLUMNIST Unavailable Unavailable Caridad, Halie NEWSPAPER COLUMNIST Unavailable Unavailable Caridad, Halie NEWSPAPER COLUMNIST Unavailable Unavailable Caridad, Halie NEWSPAPER COLUMNIST Unavailable Unavailable Caridad, Halie NEWSPAPER COLUMNIST Unavailable Unavailable Caridad, Halie NEWSPAPER COLUMNIST Unavailable Unavailable Caridad, Halie NEWSPAPER COLUMNIST Unavailable Unavailable Caridad, Halie NEWSPAPER COLUMNIST Unavailable Unavailable Caridad, Halie NEWSPAPER COLUMNIST Unavailable Unavailable Caridad, Halie NEWSPAPER COLUMNIST Unavailable Unavailable FRANCISCO, O ROBYN VILLALOBOS Unavailable Unavailable FRANCISCO, O ROBYN VILLALOBOS Unavailable Unavailable FRANCISCO, O ROBYN VILLALOBOS Unavailable Unavailable FRANCISCO, O ROBYN VILLALOBOS Unavailable Unavailable FRANCISCO, O ROBYN VILLALOBOS Unavailable Unavailable FRANCISCO, O ROBYN VILLALOBOS Unavailable Unavailable FRANCISCO, O ROBYN VILLALOBOS Unavailable Unavailable FRANCISCO, O ROBYN VILLALOBOS Unavailable Unavailable FRANCISCO, O ROBYN VILLALOBOS Unavailable Unavailable FRANCISCO, O ROBYN VILLALOBOS Unavailable Unavailable FRANCISCO, O ROBYN VILLALOBOS Unavailable Unavailable FRANCISCO, O ROBYN VILLALOBOS Unavailable Unavailable FRANCISCO, O ROBYN VILLALOBOS Unavailable Unavailable FRANCISCO, O ROBYN VILLALOBOS Unavailable Unavailable FRANCISCO, O ROBYN VILLALOBOS Unavailable Unavailable FRANCISCO, O ROBYN VILLALOBOS Unavailable Unavailable FRANCISCO, O ROBYN VILLALOBOS Unavailable Unavailable FRANCISCO, O ROBYN VILLALOBOS Unavailable Unavailable FRANCISCO, O ROBYN VILLALOBOS Unavailable Unavailable FRANCISCO, O ROBYN VILLALOBOS Unavailable Unavailable FRANCISCO, O ROBYN VILLALOBOS Unavailable Unavailable FRANCISCO, O ROBYN VILLALOBOS Unavailable Unavailable FRANCISCO, O ROBYN VILLALOBOS Unavailable Unavailable FRANCISCO, O ROBYN VILLALOBOS Unavailable Unavailable FRANCISCO, O ROBYN VILLALOBOS Unavailable Unavailable FRANCISCO, O ROBYN VILLALOBOS Unavailable Unavailable FRANCISCO, O ROBYN VILLALOBOS Unavailable Unavailable FRANCISCO, O ROBYN VILLALOBOS Unavailable Unavailable FRANCISCO, O ROBYN VILLALOBOS Unavailable Unavailable FRANCISCO, O ROBYN VILLALOBOS Unavailable Unavailable FRANCISCO, O ROBYN VILLALOBOS Unavailable Unavailable FRANCISCO, O ROBYN VILLALOBOS Unavailable Unavailable FRANCISCO, O ROBYN VILLALOBOS Unavailable Unavailable FRANCISCO, O ROBYN VILLALOBOS Unavailable Unavailable FRANCISCO, O ROBYN VILLALOBOS Unavailable Unavailable FRANCISCO, O ROBYN VILLALOBOS Unavailable Unavailable FRANCISCO, O ROBYN VILLALOBOS Unavailable Unavailable FRANCISCO, O ROBYN MD Unavailable Unavailable Jose SINGH MD Unavailable Unavailable Jose SINGH MD Unavailable Unavailable Jose SINGH MD Unavailable Unavailable Jose SINGH MD Unavailable Unavailable Jose SINGH MD Unavailable Unavailable PICKERAL JR, J ROBYN PA-C Unavailable Unavailable PICKERAL JR, J ROBYN PA-C Unavailable Unavailable PICKERAL JR, J ROBYN PA-C Unavailable Unavailable PICKERAL JR, J ROBYN PA-C Unavailable Unavailable PICKERAL JR, J ROBYN PA-C Unavailable Unavailable PICKERAL JR, J ROBYN PA-C Unavailable Unavailable PICKERAL JR, J ROBYN PA-C Unavailable Unavailable PICKERAL JR, J ROBYN PA-C Unavailable Unavailable PICKERAL JR, J ROBYN PA-C Unavailable Unavailable PICKERAL JR, J ROBYN PA-C Unavailable Unavailable PICKERAL JR, J ROBYN PA-C Unavailable Unavailable PICKERAL JR, J ROBYN PA-C Unavailable Unavailable PICKERAL JR, J ROBYN PA-C Unavailable Unavailable PICKERAL JR, J ROBYN PA-C Unavailable Unavailable PICKERAL JR, J ROBYN PA-C Unavailable Unavailable PICKERAL JR, J ROBYN PA-C Unavailable Unavailable PICKERAL JR, J ROBYN PA-C Unavailable Unavailable PICKERAL JR, J ROBYN PA-C Unavailable Unavailable PICKERAL JR, J ROBYN PA-C Unavailable Unavailable PICKERAL JR, J ROBYN PA-C Unavailable Unavailable PICKERAL JR, J ROBYN PA-C Unavailable Unavailable PICKERAL JR, J ROBYN PA-C Unavailable Unavailable PICKERAL JR, J ROBYN PA-C Unavailable Unavailable PICKERAL JR, J ROBYN PA-C Unavailable Unavailable PICKERAL JR, J ROBYN PA-C Unavailable Unavailable PICKERAL JR, J ROBYN PA-C Unavailable Unavailable PICKERAL JR, J ROBYN PA-C Unavailable Unavailable Thao, Ida Ritika PA Unavailable Unavailable Thao, Ida Ritika PA Unavailable Unavailable Thao, Ida Ritika PA Unavailable Unavailable Thao, Ida Ritika PA Unavailable Unavailable Thao, Ida Ritika PA Unavailable Unavailable Thao, Ida Ritika PA Unavailable Unavailable Thao, Ida Ritika PA Unavailable Unavailable Thao, Ida Ritika PA Unavailable Unavailable Thao, Ida Ritika PA Unavailable Unavailable Thao, Ida Ritika PA Unavailable Unavailable RING, K GRETCHEN PA Unavailable Unavailable RING, K GRETCHEN PA Unavailable Unavailable RING, K GRETCHEN PA Unavailable Unavailable RING, K GRETCHEN PA Unavailable Unavailable RING, K GRETCHEN PA Unavailable Unavailable RING, K GRETCHEN PA Unavailable Unavailable RING, K GRETCHEN PA Unavailable Unavailable RING, K GRETCHEN PA Unavailable Unavailable RING, K GRETCHEN PA Unavailable Unavailable RING, K GRETCHEN PA Unavailable Unavailable RING, K GRETCHEN PA Unavailable Unavailable RING, K GRETCHEN PA Unavailable Unavailable RING, K GRETCHEN PA Unavailable Unavailable RING, K GRETCHEN PA Unavailable Unavailable RING, K GRETCHEN PA Unavailable Unavailable RING, K GRETCHEN PA Unavailable Unavailable RING, K GRETCHEN PA Unavailable Unavailable RING, K GRETCHEN PA Unavailable Unavailable RING, K GRETCHEN PA Unavailable Unavailable RING, K GRETCHEN PA Unavailable Unavailable RING, K GRETCHEN PA Unavailable Unavailable Juan C BUSTAMANTE MD Unavailable Unavailable Juan C BUSTAMANTE MD Unavailable Unavailable Juan C BUSTAMANTE MD Unavailable Unavailable Juan C BUSTAMANTE MD Unavailable Unavailable Juan C BUSTAMANTE MD Unavailable Unavailable Juan C BUSTAMANTE MD Unavailable Unavailable Juan C BUSTAMANTE MD Unavailable Unavailable Juan C BUSTAMANTE MD Unavailable Unavailable Juan C BUSTAMANTE MD Unavailable Unavailable Juan C BUSTAMANTE MD Unavailable Unavailable Juan C BUSTAMANTE MD Unavailable Unavailable Juan C BUSTAMANTE MD Unavailable Unavailable Juan C BUSTAMANTE MD Unavailable Unavailable Juan C BUSTAMANTE MD Unavailable Unavailable Juan C BUSTAMANTE MD Unavailable Unavailable Juan C BUSTAMANTE MD Unavailable Unavailable Juan C BUSTAMANTE MD Unavailable Unavailable Juan C BUSTAMANTE MD Unavailable Unavailable Juan C BUSTAMANTE MD Unavailable Unavailable Juan C BUSTAMANTE MD Unavailable Unavailable Juan C BUSTAMANTE MD Unavailable Unavailable Juan C BUSTAMANTE MD Unavailable Unavailable Jua nC BUSTAMANTE MD Unavailable Unavailable Juan C BUSTAMANTE MD Unavailable Unavailable Juan C BUSTAMANTE MD Unavailable Unavailable Juan C BUSTAMANTE MD Unavailable Unavailable Juan C BUSTAMANTE MD Unavailable Unavailable Juan C BUSTAMANTE MD Unavailable Unavailable Juan C BUSTAMANTE MD Unavailable Unavailable Juan C BUSTAMANTE MD Unavailable Unavailable Juan C BUSTAMANTE MD Unavailable Unavailable Juan C BUSTAMANTE MD Unavailable Unavailable Juan C BUSTAMANTE MD Unavailable Unavailable VeraGavino MD Unavailable Unavailable VeraGavino MD Unavailable Unavailable AtlanticGavino MD Unavailable Unavailable AtlanticGavino MD Unavailable Unavailable AtlanticGavino MD Unavailable Unavailable AtlanticGavino MD Unavailable Unavailable VeraGavino MD Unavailable Unavailable AtlanticGavino MD Unavailable Unavailable VeraGavino MD Unavailable Unavailable VeraGavino MD Unavailable Unavailable VeraGavino MD Unavailable Unavailable VeraGavino MD Unavailable Unavailable AtlanticGavino MD Unavailable Unavailable AtlanticGavino MD Unavailable Unavailable VeraGavino MD Unavailable Unavailable AtlanticGavino MD Unavailable Unavailable VeraGavino MD Unavailable Unavailable AtlanticGavino MD Unavailable Unavailable AtlanticGavino MD Unavailable Unavailable AtlanticGavino MD Unavailable Unavailable AtlanticGavino MD Unavailable Unavailable VeraGavino MD Unavailable Unavailable VeraGavino MD Unavailable Unavailable AtlanticGavino MD Unavailable Unavailable AtlanticGavino MD Unavailable Unavailable VeraGavino MD Unavailable Unavailable VeraGavino MD Unavailable Unavailable AtlanticGavino MD Unavailable Unavailable AtlanticGavino MD Unavailable Unavailable AtlanticGavino MD Unavailable Unavailable AtlanticGavino MD Unavailable Unavailable AtlanticGavino MD Unavailable Unavailable AtlanticGavino MD Unavailable Unavailable VeraGavino MD Unavailable Unavailable AtlanticGavino MD Unavailable Unavailable AtlanticGavino MD Unavailable Unavailable AtlanticGavino MD Unavailable Unavailable VeraGavino MD Unavailable Unavailable AtlanticGavino MD Unavailable Unavailable VeraGavino MD Unavailable Unavailable VeraGavino MD Unavailable Unavailable VeraGavino MD Unavailable Unavailable AtlanticGavino MD Unavailable Unavailable AtlanticGavino MD Unavailable Unavailable AtlanticGavino MD Unavailable Unavailable VeraGavino MD Unavailable Unavailable AtlanticGavino MD Unavailable Unavailable AtlanticGavino MD Unavailable Unavailable Re-disclosure Warning The records that you are about to access may contain information from federally-assisted alcohol or drug abuse programs. If such information is present, then the following federally mandated warning applies: This information has been disclosed to you from records protected by federal confidentiality rules (42 CFR part 2). The federal rules prohibit you from making any further disclosure of this information unless further disclosure is expressly permitted by the written consent of the person to whom it pertains or as otherwise permitted by 42 CFR part 2. A general authorization for the release of medical or other information is NOT sufficient for this purpose. The Federal rules restrict any use of the information to criminally investigate or prosecute any alcohol or drug abuse patient.The records that you are about to access may contain highly sensitive health information, the redisclosure of which is protected by Article 27-F of the [facility] Public Health law. If you continue you may have access to information: Regarding HIV / AIDS; Provided by facilities licensed or operated by the [facility] Office of Mental Health; or Provided by the [facility] Office for People With Developmental Disabilities. If such information is present, then the following [facility] mandated warning applies: This information has been disclosed to you from confidential records which are protected by state law. State law prohibits you from making any further disclosure of this information without the specific written consent of the person to whom it pertains, or as otherwise permitted by law. Any unauthorized further disclosure in violation of state law may result in a fine or half-way sentence or both. A general authorization for the release of medical or other information is NOT sufficient authorization for further disc losure. Allergies and Adverse Reactions Type Description Substance Reaction Status Data Source(s ) Propensity to adverse reactions SULFA ANTIBIOTICS SULFA ANTIBIOTICS [facility] Propensity to adverse reactions PENICILLINS Penicillin [facility] Propensity to adverse reactions CLINDAMYCIN/LINCOMYCIN CLINDAMYCIN/ LINCOMYCIN [facility] Propensity to adverse reactions AZITHROMYCIN Azithromycin [facility] Propensity to adverse reactions AMOXICILLIN Amoxicillin [facility] Family History Family Member Name Family Member Gender Family Member Status Date o f Status Description Data Source(s) Unknown Unknown Problem [facility] ([facility]) Unknown Unknown Problem [facility] ([facility] Unknown Unknown Problem [facility] Encounters Encounter Providers Location Date Indications Data Source(s ) Outpatient Attender: Hamilton Gamez MDReferrer: Domo SINGH MD [id number] 07/27/2021 12:00:00 AM EDT - 07/27/2021 10:30:52 AM EDT [facility] Outpatient Attender: MARIA E Freeman/Miguel/Ang el/Reindl 07/03/2021 09:20:00 AM EDT [facility] Outpatient Attender: ROBYN Freeman/Miguel/Сергей/Re indl 06/12/2021 02:45:00 PM EDT [facility] ([facility] Outpatient Attender: ROBYN Pederson 0 05/19/2021 03:00:00 PM EDT [facility] ([facility] ) Outpatient Attender: ROBYN Pederson 0 04/28/2021 02:40:00 PM EDT [facility] ([facility] ) Outpatient Attender: Cliff Pederson 01/12 09:30:00 AM EST [facility] ([facility] ) Outpatient Attender: Ritika perezy 11/02/2020 08:40:00 AM EST [facility] ([facility] Outpatient Attender: Halie Pederson 01:40:00 PM EDT [facility] ([facility] ) Outpatient Attender: GRETCHEN Griffith Primary 07/25/2020 08:45:00 AM EDT [facility] ([facility]) Medications Medication Brand Name Start Date Product Form Dose Route Admi nistrative Instructions Pharmacy Instructions Status Indications Reaction Description Data Source(s) Citric Acid 75 MG/ML / Magnesium Oxide 2 1.9 MG/ML / picosulfate sodium 0.0625 MG/ML Oral Solution [Clenpiq] 10 mg-3.5 gram -12 gram/160 mL SOD PICOSULF/MAG OX/CITRIC AC 08/08/2021 12:00:00 AM EDT solution 320 F OLLOW PRE-PROCEDURE INSTRUCTIONS START DAY BEFORE PROCEDURE FOLLOW PRE-PROCEDURE INSTRUCTIONS START DAY BEFORE PROCEDURE SOLD: 08/18/2021 [facility] 5 mg 08/08/2021 12:00:00 AM EDT tablet,delayed release (DR/EC) 4 TAKE 4 TABLETS BY MOUTH TOGETHER PER BOWEL PREPARATIONS INSTRUCTIONS TAKE 4 TABLETS BY MOUTH TOGETHER PER BOWEL PREPARATIONS INSTRUCTIONS SOLD: 08/18/2021 [facility] Omeprazole 40 MG Delayed Release Oral Capsule Omeprazole 07/03/2021 12:00:00 AM EDT active [facility] ([facility], ) No Active Medications 06/12/2021 12:00:00 AM EDT completed [facility] ([facility], ) 10 mg 01/18/2021 12:00:00 AM EST tablet 30 TAKE ONE TABLET BY MOUTH EVERY DAY TAKE ONE TABLET BY MOUTH EVERY DAY SOLD: 01/18/2021 [facility] Loratadine 10 MG Oral Tablet Loratadine 10 MG Oral Tab let (CLARITIN) Loratadine 10 MG Oral Tablet (CLARITIN) 01/18/2021 12:00:00 AM EST 10 mg Oral active Take 10 mg by mouth daily [facility] Loratadine 10 MG Oral Tablet Loratadine 01/17/2021 12:00:00 AM EST ORAL active [facility] ([facility]) cetirizine hydrochloride 10 MG Oral Tablet [Zyrtec] Zyrtec A llergy 01/12/2021 12:00:00 AM EST ORAL completed [facility] ([facility]) Insurance Providers Payer name Policy type / Coverage type Policy ID Covered libertarian ID Covered libertarian's relationship to segundo Policy Segundo Plan Information [facility] Healthcare Commercial Indemnity [id number] Family Dependent Indemnity [facility] Healthcare Commercial [id number] Family Dependent [id number] [facility] [id number] Self [id number] [facility] [id number] SP [id number] [facility] Commercial [id number] Family Dependent [facility] Commercial [id number] Family Dependent [facility] [id number] SP [id number] [facility] [id number] [facility] [id number] [facility] O [id number] S [id number] Problems, Conditions, and Diagnoses No Information Surgeries/Procedures Procedure Description Date Indications Data Source(s) OFFICE OUTPATIENT NEW 45 MINUTES 07/03/2021 12:00:00 A M EDT [facility] ([facility]) OFFICE OUTPATIENT NEW 45 MINUTES 06/12/2021 12:00:00 A M EDT [facility] ([facility]) OFFICE OUTPATIENT VISIT 15 MINUTES 05/19/2021 12:00:00 AM EDT [facility] ([facility]) OFFICE OUTPATIENT VISIT 25 MINUTES 04/28/2021 12:00:00 AM EDT [facility] ([facility]) PERIODIC PREVENTIVE MED EST PATIENT 18-39 YRS 01/13/20 12:00:00 AM EST [facility] ([facility]) Results ID Date Data Source [id number] 07/27/2021 01:41:19 PM EDT [facility] Name Value Range Interpretation Code Description Data Arti rce(s) Supporting Document(s) Progress Note [facility] [id number] [file] [id number] ID Date Data Source [id number] 07/03/2021 02:21:00 PM EDT [facility] ([facility], ) Name Value Range Interpretation Code Description Data Arti rce(s) Supporting Document(s) Ast/Sgot 22 U/L 7-37 Normal (applies to non-numeric resul ts) [facility]) Alt/SGPT 26 U/L 12-78 Normal (applies to non-numeric resul ts) [facility] ([facility]) Alkaline Phosphatase 35 U/L 45-117 Below low normal [facility] ([facility]) Bilirubin,Direct Laboratory test result 0.0-0.2 Normal ( applies to non-numeric results) [facility] ([facility]) Total Protein 6.7 GM/DL 6.4-8.2 Normal (applies to non-numeric re sults) [facility]) Bilirubin,Total 0.3 mg/dL 0.2-1.0 Normal (applies to non-numeric results) [facility]) Albumin 3.5 GM/DL 3.2-5.2 Normal (applies to non-numeric resul ts) [facility] ([facility]) Albumin/Globulin Ratio 1.1 1.2-2.2 Below low normal [facility] ([facility]) ID Date Data Source [id number] [facility] Name Value Range Interpretation Code Description Data Arti rce(s) Supporting Document(s) Igasub2 86.5 mg/dL 73.2-301.2 Normal (applies to non-numeric resul ts) [facility] ([facility]) Igasub3 16.1 mg/dL 13.4-97.9 Normal (applies to non-numeric resul ts) [facility]) IgA Serum (part of Subclasses) 102 mg/dL 87-352 N ormal (applies to non-numeric results) [facility]) ID Date Data Source [id number] 07/03/2021 02:21:[address] [facility]) Name Value Range Interpretation Code Description Data Arti rce(s) Supporting Document(s) Tissue transglutaminase IgA Ab [Units/volume] in Serum Labor atory test result 0-3 Normal (applies to non-numeric results) [facility] ([facility], ) Negative 0 - 3 Weak Positive 4 - 10 Positive >10 . Tissue Transglutaminase (tTG) has been identified as the endomysial antigen. Studies have demonstr- ated that endomysial IgA antibodies have over 99% specificity for gluten sensitive enteropathy. Performed at: [address] [id number] [employer] Operator: Corrine Pimentel MD, Phone: [phone] Performed at: [address] [id number] [employer] Operator: Adrienne Driscoll MD, Phone: [phone] ID Date Data Source [id number] 07/03/2021 02:21:00 PM EDT [facility] ([facility]) Name Value Range Interpretation Code Description Data Arti rce(s) Supporting Document(s) Igasub2 86.5 mg/dL 73.2-301.2 [facility] ([facility]) IgA Serum (part of Subclasses) 102 mg/dL 87-352 [facility] ([facility]) Igasub3 16.1 mg/dL 13.4-97.9 [facility] ID Date Data Source [id number] 07/03/2021 02:21:00 PM EDT [facility] ([facility]) Name Value Range Interpretation Code Description Data Arti rce(s) Supporting Document(s) Tissue transglutaminase IgA Ab [Units/volume] in Serum Labor atory test result 0-3 [facility] ([facility]) Negative 0 - 3 Weak Positive 4 - 10 Positive >10 . Tissue Transglutaminase (tTG) has been identified as the endomysial antigen. Studies have demonstr- ated that endomysial IgA antibodies have over 99% specificity for gluten sensitive enteropathy. Performed at: [address] [id number] [employer] Operator: Corrine Pimentel MD, Phone: [phone] Performed at: [address] [id number] [employer] Operator: Adrienne Driscoll MD, Phone: [phone] ID Date Data Source [id number] 07/03/2021 02:21:00 PM EDT [facility] ([facility]) Name Value Range Interpretation Code Description Data Arti rce(s) Supporting Document(s) Alt/SGPT 26 U/L 12-78 [facility] Ast/Sgot 22 U/L 7-37 [facility]) Bilirubin,Total 0.3 mg/dL 0.2-1.0 [facility] ([facility]) Alkaline Phosphatase 35 U/L 45-117 [facility] ([facility]) Total Protein 6.7 GM/DL 6.4-8.2 [facility] ([facility]) Bilirubin,Direct Laboratory test result 0.0-0.2 [facility] ([facility]) Albumin 3.5 GM/DL 3.2-5.2 [facility] Albumin/Globulin Ratio 1.1 1.2-2.2 [facility] ([facility]) ID Date Data Source [id number] 04/28/2021 03:05:00 PM EDT [facility] ([facility]) Name Value Range Interpretation Code Description Data Arti rce(s) Supporting Document(s) Antinuclear Antibodies Direct Laboratory test result [facility] ([facility]) Performed at: RN - [facility] [place] [id number] [employer]: Corrine Pimentel MD, Phone: [phone] ID Date Data Source [id number] 04/28/2021 03:05:00 PM EDT [facility] ([facility]) Name Value Range Interpretation Code Description Data Arti rce(s) Supporting Document(s) Amylase [Enzymatic activity/volume] in Serum or Plasma 67 U/L 25- 115 [facility] ([facility]) Erythrocyte sedimentation rate by Westergren method 8 mm/hr 0-20 [facility] ([facility]) Lipoprotein lipase [Enzymatic activity/volume] in Serum or P lasma 132 U/L 73-393 [facility] ([facility]) ID Date Data Source [id number] 04/28/2021 03:04:00 PM EDT [facility] ([facility]) Name Value Range Interpretation Code Description Data Arti rce(s) Supporting Document(s) Urine Appearance Laboratory test result [facility] ([facility]) Urine Color Laboratory test result Abnormal (applies to non-numeric results) [facility] Specific gravity of Urine 1.005 1.005-1.030 [facility] ([facility]) Urine PH 8.0 units 5.0-9.0 [facility]) Urine Leukocytes Laboratory test result [facility] ([facility]) Urine Blood Laboratory test result [facility] T ([facility]) Urine Protein Laboratory test result 0-0 [facility] ([facility]) Urine Nitrite Laboratory test result [facility] ([facility]) Glucose [Presence] in Urine Laboratory test result [facility] ([facility]) Bilirubin.total [Mass/volume] in Serum or Plasma Laboratory test resu lt [facility] ([facility]) Urine Ketone Laboratory test result [facility] Urine Urobilinogen 0.2 mg/dL 0.2-1.0 [facility] ([facility]) ID Date Data Source [id number] 04/28/2021 03:04:00 PM EDT [facility] Name Value Range Interpretation Code Description Data Arti rce(s) Supporting Document(s) Glucose [Mass/volume] in Serum or Plasma 94 mg/dL 74-99 [facility] ([facility]) 100-125 mg/dL PRE-DIABETES/FASTING >126 mg/dL DIABETES/FASTING Urea nitrogen [Mass/volume] in Serum or Plasma 28 mg/dL 7-18 [facility]) Creatinine 1.1 mg/dL 0.6-1.3 [facility] ([facility]) Sodium [Moles/volume] in Serum or Plasma 135 meq/L 136-145 [facility] ([facility]) Potassium [Moles/volume] in Serum or Plasma 4.0 meq/L 3.5-5.1 [facility] ([facility]) Chloride [Moles/volume] in Serum or Plasma 100 meq/L 98-107 [facility] ([facility]) Calcium [Mass/volume] in Serum or Plasma 8.8 mg/dL 8.5-10.1 [facility] ([facility]) Carbon dioxide, total [Moles/volume] in Serum or Plasma 31 meq/L 21 -32 [facility] ([facility]) Alkaline phosphatase isoenzyme [Units/volume] in Serum or Pl asma 36 mg/dL 46-116 [facility] ([facility]) Total Bilirubin 0.5 mg/dL 0.2-1.0 [facility] ([facility]) Alanine aminotransferase [Enzymatic activity/volume] in Seru m or Plasma 27 U/L 12-78 [facility] ([facility]) Aspartate aminotransferase [Enzymatic activity/volume] in Serum or Plasma 21 U/L 15-37 [facility] ([facility] ) Proteinase 3 Ab [Units/volume] in Serum 7.2 g/dL 6.4-8.2 [facility] ([facility]) A/G Ratio 1.18 CALC 1.00-1.90 [facility]) Albumin [Mass/volume] in Serum or Plasma 3.9 g/dL 3.4-5.0 [facility] ([facility]) Glomerular filtration rate/1.73 sq M pre dicted among non-blacks [Volume Rate/Area] in Serum or Plasma by Creatinine-based formula (MDRD) 55 mL/min [facility] Glomerular filtration rate/1.73 sq M pre dicted among blacks [Volume Rate/Area] in Serum or Plasma by Creatinine-based formula (MDRD) Laboratory test result [facility] <content>CHRONIC KIDNEY DISEASE STAGING PER NKF</content>
<content></content>
<content>STAGE I & II GFR >= 60 NORMAL TO MILDLY DECREASED</content>
<content>STAGE III GFR 30-59 MODERATELY DECREASED</content>
<content>STAGE IV GFR 15-29 SEVERELY DECREASED</content>
<content>STAGE V GFR <15 VERY LITTLE GFR LEFT</content>
<content>ESRD GFR <15 ON TUNNEL WORKER</content>
<content></content> ID Date Data Source [id number] 04/28/2021 03:04:00 PM EDT [facility] ([facility]) Name Value Range Interpretation Code Description Data Arti rce(s) Supporting Document(s) Leukocytes [#/volume] in Blood by Automated count 5.5 x10*3/UL 4.1-10 .9 [facility] ([facility]) Erythrocytes [#/volume] in Blood by Automated count 3.82 x10*6/UL 4.2 0-6.30 [facility] ([facility]) Hemoglobin [Mass/volume] in Blood 13.0 g/dL 12.0-18.0 [facility] ([facility]) Hematocrit [Volume Fraction] of Blood by Automated count 37.6 % 3 7.0-51.0 [facility] ([facility]) MCV 98.4 fL 80.0-97.0 [facility] MCHC 34.7 g/dL 31.0-38.0 [facility] MCH 34.1 pg 26.0-32.0 [facility]) Erythrocyte distribution width [Ratio] by Automated count 13.4 % 11.6-13.7 [facility] ([facility]) Platelets [#/volume] in Blood by Automated count 205 x10*3/UL 140-440 [facility] ([facility]) Lymph % 21.0 % 10.0-58.5 [facility] ([facility]) MPV 8.3 FL 7.8-11.0 [facility] Mid % 6.3 % 1.7-9.3 [facility] Neut % 72.7 % 37.0-92.0 [facility] Lymph # 1.1 x10*3/UL 0.6-4.1 [facility] ([facility]) Mid # 0.4 x10*3/UL 0.1-0.6 [facility] ([facility]) Neut # 4.0 x10*3/UL 2.0-7.8 [facility] ([facility]) ID Date Data Source [id number] 11/02/2020 12:00:00 AM EST [facility] Name Value Range Interpretation Code Description Data Arti rce(s) Supporting Document(s) SARS-CoV2 Rapid Antigen [facility] This lab was reported by Jose F pitts. ID Date Data Source [id number] 07/28/2020 01:55:00 PM EDT [facility] ([facility]) Name Value Range Interpretation Code Description Data Arti rce(s) Supporting Document(s) C reactive protein [Mass/volume] in Serum or Plasma by High sensitivity method 0.59 mg/dL 0.00-0.30 [facility] ([facility] ) ID Date Data Source [id number] 07/28/2020 01:54:00 PM EDT [facility] ([facility]) Name Value Range Interpretation Code Description Data Arti rce(s) Supporting Document(s) Glucose [Mass/volume] in Serum or Plasma 76 mg/dL 74-99 [facility] ([facility]) 100-125 mg/dL PRE-DIABETES/FASTING >126 mg/dL DIABETES/FASTING Urea nitrogen [Mass/volume] in Serum or Plasma 18 mg/dL 7-18 [facility] ([facility]) Creatinine 1.0 mg/dL 0.6-1.3 [facility]) Potassium [Moles/volume] in Serum or Plasma 4.0 meq/L 3.5-5.1 [facility] ([facility]) Sodium [Moles/volume] in Serum or Plasma 138 meq/L 136-145 [facility] ([facility]) Carbon dioxide, total [Moles/volume] in Serum or Plasma 29 meq/L 21 -32 [facility] ([facility]) Calcium [Mass/volume] in Serum or Plasma 8.7 mg/dL 8.5-10.1 [facility] ([facility]) Chloride [Moles/volume] in Serum or Plasma 102 meq/L 98-107 [facility] ([facility]) Glomerular filtration rate/1.73 sq M pre dicted among blacks [Volume Rate/Area] in Serum or Plasma by Creatinine-based formula (MDRD) Laboratory test result [facility] <content>CHRONIC KIDNEY DISEASE STAGING PER NKF</content>
<content></content>
<content>STAGE I & II GFR >= 60 NORMAL TO MILDLY DECREASED</content>
<content>STAGE III GFR 30-59 MODERATELY DECREASED</content>
<content>STAGE IV GFR 15-29 SEVERELY DECREASED</content>
<content>STAGE V GFR <15 VERY LITTLE GFR LEFT</content>
<content>ESRD GFR <15 ON TUNNEL WORKER</content>
<content></content> Glomerular filtration rate/1.73 sq M pre dicted among non-blacks [Volume Rate/Area] in Serum or Plasma by Creatinine-based formula (MDRD) Laboratory test result [facility] ([facility] ID Date Data Source [id number] 07/28/2020 01:54:00 PM EDT [facility] ([facility]) Name Value Range Interpretation Code Description Data Arti rce(s) Supporting Document(s) Erythrocyte sedimentation rate by Westergren method 23 mm/hr 0-15 [facility] ID Date Data Source [id number] 07/28/2020 01:54:00 PM EDT [facility] Name Value Range Interpretation Code Description Data Arti rce(s) Supporting Document(s) Erythrocytes [#/volume] in Blood by Automated count 4.13 x10*6/UL 4.2 0-6.30 [facility]) Leukocytes [#/volume] in Blood by Automated count 4.1 x10*3/UL 4.1-10 .9 [facility] ([facility]) Hemoglobin [Mass/volume] in Blood 13.5 g/dL 12.0-18.0 [facility] ([facility]) MCV 93.5 fL 80.0-97.0 [facility] ([facility]) Hematocrit [Volume Fraction] of Blood by Automated count 38.6 % 3 7.0-51.0 [facility] ([facility]) MCH 32.7 pg 26.0-32.0 [facility]) MCHC 34.9 g/dL 31.0-38.0 [facility] Erythrocyte distribution width [Ratio] by Automated count 12.9 % 11.6-13.7 [facility] ([facility]) Platelets [#/volume] in Blood by Automated count 234 x10*3/UL 140-440 [facility] ([facility]) MPV 8.2 FL 7.8-11.0 [facility] Lymph % 25.6 % 10.0-58.5 [facility] Mid % 8.9 % 1.7-9.3 [facility] Neut % 65.5 % 37.0-92.0 [facility] Lymph # 1.0 x10*3/UL 0.6-4.1 [facility] ([facility]) Mid # 0.4 x10*3/UL 0.1-0.6 [facility] ([facility]) Neut # 2.7 x10*3/UL 2.0-7.8 [facility] ([facility]) Procedure Social History Code Duration Value Status Description Data Source(s ) Alcohol intake 07/27/2021 12:00:00 AM EDT Current drinker of al cohol (finding) completed Current drinker of alcohol (finding) [facility] Tobacco use and exposure 07/27/2021 12:00:00 AM EDT Never used co mpleted Never used [facility] Smoking 07/27/2021 12:00:00 AM EDT Never smoker completed Never s [facility] Smoking 11/02/2020 12:00:00 AM EST Patient has never smoked co mpleted Patient has never smoked [facility] ([facility], [facility]) Vital Signs ID Date Data Source UNK Name Value Range Interpretation Code Description Data Source(s) Systolic blood pressure 132 mm[Hg] 132 mm[Hg] M [facility] ([facility], ) Diastolic blood pressure 78 mm[Hg] 78 mm[Hg] [facility] ([facility], ) Body height 66 [in_i] 66 [in_i] [facility] ([facility]) 5'6" Body weight 140.00 [lb_av] 140.00 [lb_av] [facility] T ([facility]) Body mass index (BMI) [Ratio] 22.6 kg/m2 22.6 k g/m2 [facility] ([facility]) Shields body weight 130 [lb_av] 130 [lb_av] [facility] T ([facility]) Body weight 63.504 kg 63.504 kg [facility] ([facility]) Body surface area Derived from formula 1.72 m2 1.72 m2 [facility] ([facility]) Body surface area Derived from formula 1.77 m2 1.77 m2 [facility] ([facility]) Body weight 68.040 kg 68.040 kg [facility] ([facility]) Systolic blood pressure 110 mm[Hg] 110 mm[Hg] M EDENT ([facility]) Diastolic blood pressure 60 mm[Hg] 60 mm[Hg] [facility] ([facility]) Body temperature 99.1 [degF] 99.1 [degF] [facility] ([facility]) Body height 66 [in_i] 66 [in_i] [facility] ([facility]) 5'6" Body weight 150.00 [lb_av] 150.00 [lb_av] [facility] T ([facility]) Body mass index (BMI) [Ratio] 24.2 kg/m2 24.2 k g/m2 [facility] ([facility]) Shields body weight 130 [lb_av] 130 [lb_av] [facility] T ([facility]) Systolic blood pressure 126 mm[Hg] 126 mm[Hg] M EDENT ([facility]) Diastolic blood pressure 76 mm[Hg] 76 mm[Hg] [facility] ([facility]) Heart rate 68 /min 68 /min [facility] ([facility]) Body height 65 [in_i] 65 [in_i] [facility] ([facility]) 5'5" Body weight 147.00 [lb_av] 147.00 [lb_av] [facility] T ([facility]) Body mass index (BMI) [Ratio] 24.5 kg/m2 24.5 k g/m2 [facility] ([facility]) Body height 65 [in_i] 65 [in_i] [facility] ([facility]) 5'5" Body weight 145.00 [lb_av] 145.00 [lb_av] [facility] T ([facility]) Oxygen saturation in Arterial blood by Pulse oximetry 100 % 100 % [facility]) [facility] Body mass index (BMI) [Ratio] 24.1 kg/m2 24.1 k g/m2 [facility] ([facility]) Systolic blood pressure 120 mm[Hg] 120 mm[Hg] [facility] Diastolic blood pressure 80 mm[Hg] 80 mm[Hg] [facility]) Heart rate 54 /min 54 /min [facility] ([facility]) Systolic blood pressure 126 mm[Hg] 126 mm[Hg] [facility] Diastolic blood pressure 70 mm[Hg] 70 mm[Hg] [facility] ([facility]) Heart rate 76 /min 76 /min [facility] ([facility]) Body height 65 [in_i] 65 [in_i] [facility] ([facility]) 5'5" Body weight 144.00 [lb_av] 144.00 [lb_av] [facility] T ([facility]) Body mass index (BMI) [Ratio] 24.0 kg/m2 24.0 k g/m2 [facility] ([facility]) Systolic blood pressure 120 mm[Hg] 120 mm[Hg] [facility]) Diastolic blood pressure 83 mm[Hg] 83 mm[Hg] [facility] ([facility], [facility]) Heart rate 60 /min 60 /min [facility] Respiratory rate 18 /min 18 /min [facility] ( [facility], [facility]) Oxygen saturation in Arterial blood by Pulse oximetry 98 % 98 % [facility] ([facility], [facility]) Body temperature 97.8 [degF] 97.8 [degF] [facility] ([facility], [facility]) Body weight 149.00 [lb_av] 149.00 [lb_av] [facility] T ([facility], [facility]) Body height 66 [in_i] 66 [in_i] [facility] ([facility], [facility]) 5'6" Body mass index (BMI) [Ratio] 24.0 kg/m2 24.0 k g/m2 [facility] ([facility], [facility]) Heart rate 80 /min 80 /min [facility] Body height 65 [in_i] 65 [in_i] [facility] ([facility]) 5'5" Body weight 143.00 [lb_av] 143.00 [lb_av] [facility] T ([facility]) Body mass index (BMI) [Ratio] 23.8 kg/m2 23.8 k g/m2 [facility] ([facility]) Systolic blood pressure 118 mm[Hg] 118 mm[Hg] [facility] RT Arm Diastolic blood pressure 70 mm[Hg] 70 mm[Hg] [facility] ([facility]) RT Arm Heart rate 68 /min 68 /min [facility] ([facility], [facility]) Oxygen saturation in Arterial blood by Pulse oximetry 98 % 98 % [facility] ([facility], [facility]) Body temperature 97.9 [degF] 97.9 [degF] [facility] ([facility], [facility]) Systolic blood pressure 113 mm[Hg] 113 mm[Hg] [facility]) Diastolic blood pressure 81 mm[Hg] 81 mm[Hg] [facility] ([facility], [facility]) Respiratory rate 16 /min 16 /min [facility] ( [facility], [facility]) Body weight 149.00 [lb_av] 149.00 [lb_av] [facility] T ([facility], [facility]) Body height 66 [in_i] 66 [in_i] [facility] ([facility], [facility]) 5'6" Body mass index (BMI) [Ratio] 24.0 kg/m2 24.0 k g/m2 [facility] ([facility], [facility]) Patient Treatment Plan of Care Planned Activity Planned Date Details Description Data Source (s) Loratadine 10 MG Oral Tablet 01/18/2021 12:00:00 AM [facility]
== END 2021-08-21 16:18 | disposition home or self-care (01) ==
LOC: M SDC 13:58 → M OPP 13:58 → M SDC 16:18
PROVIDERS: ATTEND Internal Medicine Gastroenterology
DX: Q43.8 Other specified congenital malformations of intestine (principal); K63.5 Polyp of colon; K64.8 Other hemorrhoids; K92.1 Melena; Z88.0 Allergy status to penicillin; Z88.1 Allergy status to other antibiotic agents; Z88.2 Allergy status to sulfonamides; Z85.3 Personal history of malignant neoplasm of breast; Z80.0 Family history of malignant neoplasm of digestive organs; Z80.3 Family history of malignant neoplasm of breast
CPT/HCPCS: 45385; 88305; J3010

== ENCOUNTER → 2024-01-13 | Outpatient (CLI) | payer OTHER ==
[~2024-01-13] MED LIST changes: -LIDOCAINE 1% MDV 20ML VIAL SQ PRN; +LORA-1041; -LORA-674; -LR 1,000 ML IV ONE; -NS 1,000 ML IV ONE; +PROHANCE 279.3MG/ML 15ML VIAL As Ordered ONE
== END ==
LOC: M RAD 08:33
PROVIDERS: ATTEND Podiatrist Foot & Ankle Surgery
DX: D21.21 Benign neoplasm of connective and other soft tissue of right lower limb, including hip (principal); M21.6X1 Other acquired deformities of right foot
CPT/HCPCS: 73720; A9576

== ENCOUNTER 2024-04-15 08:01 | Day surgery (SDC) | payer OTHER ==
[~2024-04-15] VITALS: Ht 167.6 cm; Wt 69.2 kg
[~2024-04-15 08:01] MED LIST changes: +FLUO-290 PO; +PROB250C PO; -PROHANCE 279.3MG/ML 15ML VIAL As Ordered ONE
[2024-04-15] MEDS ORDERED: fentaNYL 100 MCG/2 ML INJECTION IV PRN (08:05)
[2024-04-15] MEDS ORDERED: ONDANSETRON 4MG 2ML VIAL IV PRN (08:05)
[2024-04-15] MEDS ORDERED: LR 1,000 ML IV SCH ×2 (08:05→08:20)
[2024-04-15] MEDS ORDERED: oxyCODONE 5MG TAB PO PRN (08:05)
[2024-04-15] MEDS ORDERED: HYDROMORPHONE HCL 0.5 MG/ 0.5 ML SYRINGE IV PRN (08:05)
[2024-04-15] MEDS ORDERED: MORPHINE 2 MG/ML 1ML VIAL IV PRN (08:05)
[2024-04-15] MEDS ORDERED: MIDAZOLAM INJ 2MG/2ML VIAL As Ordered ONE (08:21)
[2024-04-15] MEDS ORDERED: propofoL 200 MG/20 ML VIAL As Ordered ONE (08:21)
[2024-04-15] MEDS ORDERED: LIDOCAINE 2% 100MG/5ML SDV (FOR ANES.) As Ordered ONE (08:21)
[2024-04-15] MEDS ORDERED: fentaNYL 100 MCG/2 ML INJECTION As Ordered ONE (08:21)
[2024-04-15] MEDS ORDERED: KETOROLAC 60MG 2ML VIAL As Ordered ONE (08:47)
[2024-04-15] MEDS: LIDOCAINE 1% SDV 30ML VIAL As Ordered ONE (09:40)
[2024-04-15] MEDS: ceFAZolin SOD 2 GM in IV 1 EA IV ONE (09:41)
[2024-04-15] MEDS: SCOPOLAMINE 1MG TRANSDERMAL PATCH TOP ONE (09:47)
[2024-04-15] MEDS ORDERED: ONDANSETRON 4MG 2ML VIAL As Ordered ONE (10:18)
[2024-04-15] MEDS ORDERED: ACETAMINOPHEN 1000MG 100ML IV BAG As Ordered ONE (10:18)
[2024-04-15 11:45] VITALS: BP 136/82; TEMP 98.2; O2SAT 99
== END 2024-04-15 11:50 | disposition home or self-care (01) ==
LOC: M SDC 08:01
PROVIDERS: ATTEND Podiatrist Foot & Ankle Surgery
DX: M24.174 Other articular cartilage disorders, right foot (principal); M21.6X1 Other acquired deformities of right foot; Z88.1 Allergy status to other antibiotic agents; Z88.0 Allergy status to penicillin; Z88.2 Allergy status to sulfonamides; Z79.899 Other long term (current) drug therapy
CPT/HCPCS: 28308; 28313; C1713; J0131; J0665; J0690; J1100; J1885; J2250; J2405; J3010